=== PATIENT | female | born 1945 | race Caucasian/White ===

== ENCOUNTER 2022-10-03 05:55 | Inpatient (IN) | payer MEDICARE, OTHER ==
[~2022-10-03] VITALS: Ht 157.5 cm; Wt 81.8 kg
[~2022-10-03 05:55] MED LIST: ETHYL ALCOHOL 62% ANTISEPTIC NASAL SANITIZER 0.6 ML AMPUL NASAL ONE; RINGERS SOLUTION,LACTATED 1,000 ML IV ONE
[2022-10-03 06:18] LABS: COVID AG,FIA SOURCE NASAL SWAB
[2022-10-03] MEDS ORDERED: BUPIVACAINE HCL/PF 0.5% 30 ML VIAL ONE ×2 (06:52→07:20)
[2022-10-03] MEDS ORDERED: SODIUM CHLORIDE 0.9% 40 ML ONE (06:52)
[2022-10-03] MEDS ORDERED: VANCOMYCIN HCL 1 GM/VIAL ONE (06:52)
[2022-10-03] MEDS ORDERED: SODIUM CL IRRIG SOLN BAG 3,000 ML IRRIG ONE (06:53)
[2022-10-03] MEDS ORDERED: FentaNYL CITRATE PF 100 MCG/2 ML VIAL IVP PRN (07:00)
[2022-10-03] MEDS ORDERED: ZOLPIDEM TARTRATE 5 MG TABLET PO PRN (07:00)
[2022-10-03] MEDS ORDERED: CELECOXIB 200 MG CAPSULE PO ONE (07:00)
[2022-10-03] MEDS ORDERED: TRANEXAMIC ACID 1,000 MG in DEXTROSE 5%-WATER 50 ML IV ONE (07:00)
[2022-10-03] MEDS ORDERED: CYCLOBENZAPRINE HCL 10 MG TABLET PO PRN (07:00)
[2022-10-03] MEDS ORDERED: MEPERIDINE-PF 25 MG/ML VIAL IVP PRN (07:00)
[2022-10-03] MEDS ORDERED: HYDROmorphone HCL 2 MG/ML SYRINGE IVP PRN (07:00)
[2022-10-03] MEDS ORDERED: BUPIVACAINE LIPOSOME/PF 1.3%-13.3MG/ML SUSPENSION 20 ML VIAL INJ ONE ×2 (07:00→07:30)
[2022-10-03] MEDS ORDERED: OxyCODONE HCL 5 MG IR TABLET PO PRN (07:00)
[2022-10-03] MEDS ORDERED: ONDANSETRON HCL 4 MG/2 ML VIAL IVP PRN ×2 (07:00→09:45)
[2022-10-03] MEDS: ACETAMINOPHEN 1000 MG/ISO-OSM 100 ML IV SCH ×3 (07:09→18:08)
[2022-10-03] MEDS ORDERED: SODIUM CHLORIDE 0.9% 20 ML ONE (07:20)
[2022-10-03 07:41] LABS: GLUCOMETER DEV NAME(LOC) SDS.; GLUCOSE,POINT OF CARE 104 MG/DL (70-110)
[2022-10-03] MEDS ORDERED: LOSA-382 PO (07:44)
[2022-10-03] MEDS ORDERED: OXYGEN THERAPY IH SCH (08:00)
[2022-10-03] MEDS ORDERED: BISACODYL 10 MG RECTAL RECTAL SUPPOSITORY PR PRN (09:45)
[2022-10-03] MEDS ORDERED: MAG HYDROX/AL HYDROX/SIMETH 30 ML SUSP UDCUP PO PRN (09:45)
[2022-10-03] MEDS ORDERED: DiphenhydrAMINE HCL 50 MG/ML VIAL IVP PRN (09:45)
[2022-10-03] MEDS ORDERED: BENZOCAINE/MENTHOL LOZENGE PO PRN (09:45)
[2022-10-03 10:40] VITALS: BP 111/52
[2022-10-03] MEDS: OMEPRAZOLE 20 MG CAPSULE PO SCH (13:35)
[2022-10-03] MEDS: CeFAZolin 1 GM/DEXTROSE 50 ML IV SCH (15:24)
[2022-10-03 16:36] VITALS: BP 105/56
[2022-10-03 20:00] VITALS: BP 137/62
[2022-10-03] MEDS: FAMOTIDINE 20 MG TABLET PO SCH (20:33)
[2022-10-03] MEDS: DOCUSATE SODIUM 100 MG CAPSULE PO SCH (20:33)
[2022-10-03] MEDS: CELECOXIB 200 MG CAPSULE PO SCH (20:34)
[2022-10-04] MEDS: CeFAZolin 1 GM/DEXTROSE 50 ML IV SCH (00:26)
[2022-10-04] MEDS: HYDROmorphone HCL 2 MG/ML SYRINGE IVP PRN ×4 (00:33→23:01)
[2022-10-04] MEDS: ACETAMINOPHEN 1000 MG/ISO-OSM 100 ML IV SCH ×2 (01:35→08:56)
[2022-10-04 03:58] VITALS: BP 122/60
[2022-10-04] MEDS ORDERED: MORPHINE SULFATE/PF 0.5 MG/ML 10 ML AMP IVP ONE (06:05)
[2022-10-04] MEDS ORDERED: FentaNYL CITRATE PF 100 MCG/2 ML VIAL IVP ONE (06:05)
[2022-10-04] MEDS ORDERED: 0.9% SODIUM CHLORIDE 10 ML VIAL IVP ONE (06:05)
[2022-10-04] MEDS ORDERED: ROCURONIUM BROMIDE 10 MG/ML 5 ML VIAL IVP ONE (06:05)
[2022-10-04] MEDS ORDERED: DEXAMETHASONE SOD PHOS 4 MG/ML VIAL IVP ONE (06:05)
[2022-10-04] MEDS ORDERED: PROPOFOL 1% 20 ML VIAL IVP ONE (06:05)
[2022-10-04] MEDS ORDERED: LIDOCAINE/PF 2% 5 ML SYRINGE IVP ONE (06:05)
[2022-10-04] MEDS ORDERED: ONDANSETRON HCL 4 MG/2 ML VIAL IVP ONE (06:05)
[2022-10-04 06:32] LABS: BASOPHILS % (AUTO) 0.1 % (0.0-2.0); EOSINOPHILS % (AUTO) 0.4 % (1.0-6.0); HEMATOCRIT 29.5 % (36-46); HEMOGLOBIN 10.3 g/dL (12.0-16.0); LYMPHOCYTES % (AUTO) 21.7 % (22.0-44.0); MEAN CORPUSCULAR HGB CONC 34.8 G/dL (31.0-37.0); MEAN CORPUSCULAR VOLUME 86 fL (80-100); MONOCYTES # (AUTO) 0.6 K/uL (0.1-1.0); MONOCYTES % (AUTO) 6.5 % (2.0-9.0); NEUTROPHILS # (AUTO) 6.6 K/uL (1.8-7.7); NEUTROPHILS % (AUTO) 71.3 % (40.0-70.0); PLATELET COUNT (AUTO) 276 K/uL (150-450); RED BLOOD CELL COUNT(AUTO) 3.42 MIL/uL (4.00-5.20); RED CELL DISTRIBUTION WIDTH 13.5 % (11.5-14.5)
[2022-10-04 06:40] LABS: CALCIUM, TOTAL 8.5 mg/dL (8.8-10.5); CREATININE 0.92 mg/dL (0.60-1.30)
[2022-10-04 08:10] VITALS: BP 108/59
[2022-10-04] MEDS: DOCUSATE SODIUM 100 MG CAPSULE PO SCH ×2 (08:56→20:46)
[2022-10-04] MEDS: OMEPRAZOLE 20 MG CAPSULE PO SCH (08:56)
[2022-10-04] MEDS: CELECOXIB 200 MG CAPSULE PO SCH ×2 (08:56→20:47)
[2022-10-04] MEDS: ASPIRIN 81 MG CHEWABLE TABLET PO SCH ×2 (08:56→20:46)
[2022-10-04] MEDS: FAMOTIDINE 20 MG TABLET PO SCH ×2 (08:57→20:47)
[2022-10-04] MEDS ORDERED: LOSARTAN POTASSIUM 50 MG TABLET PO SCH (09:00)
[2022-10-04] MEDS ORDERED: OxyCODONE HCL/ACETAMINOPHEN 10-325 MG TABLET PO PRN (13:00)
[2022-10-04 20:00] VITALS: BP 130/56
[2022-10-05] MEDS: HYDROmorphone HCL 2 MG/ML SYRINGE IVP PRN (04:14)
[2022-10-05 04:16] VITALS: BP 135/51
[2022-10-05 07:06] LABS: BASOPHILS % (AUTO) 0.3 % (0.0-2.0); EOSINOPHILS % (AUTO) 3.3 % (1.0-6.0); HEMATOCRIT 27.5 % (36-46); HEMOGLOBIN 9.4 g/dL (12.0-16.0); LYMPHOCYTES # (AUTO) 2.1 K/uL (1.0-4.8); LYMPHOCYTES % (AUTO) 24.6 % (22.0-44.0); MEAN CORPUSCULAR HEMOGLOBIN 29.9 pg (26.0-34.0); MEAN CORPUSCULAR HGB CONC 34.4 G/dL (31.0-37.0); MEAN CORPUSCULAR VOLUME 87 fL (80-100); MONOCYTES # (AUTO) 0.7 K/uL (0.1-1.0); NEUTROPHILS # (AUTO) 5.3 K/uL (1.8-7.7); NEUTROPHILS % (AUTO) 63.8 % (40.0-70.0); PLATELET COUNT (AUTO) 246 K/uL (150-450); RED BLOOD CELL COUNT(AUTO) 3.16 MIL/uL (4.00-5.20); RED CELL DISTRIBUTION WIDTH 13.5 % (11.5-14.5)
[2022-10-05 07:45] VITALS: BP 130/56
[2022-10-05] MEDS: OMEPRAZOLE 20 MG CAPSULE PO SCH (08:11)
[2022-10-05] MEDS: ASPIRIN 81 MG CHEWABLE TABLET PO SCH (08:11)
[2022-10-05] MEDS: DOCUSATE SODIUM 100 MG CAPSULE PO SCH (08:11)
[2022-10-05] MEDS: FAMOTIDINE 20 MG TABLET PO SCH (08:12)
[2022-10-05] MEDS: CELECOXIB 200 MG CAPSULE PO SCH (08:29)
[2022-10-05] MEDS ORDERED: ACETAMINOPHEN 325 MG TABLET PO PRN (15:00)
[2022-10-05 15:09] VITALS: BP 121/62
== END 2022-10-05 16:15 | disposition home health service (06) | DRG 470 ==
LOC: 6S 05:55
PROVIDERS: ADMIT Orthopaedic Surgery; ATTEND Orthopaedic Surgery
PROC: 0SR90JZ Replacement of Right Hip Joint with Synthetic Substitute, Open Approach (ICD-10-PCS; principal; 2022-10-03 07:30)
DX: M16.11 Unilateral primary osteoarthritis, right hip (principal); I10 Essential (primary) hypertension; Z20.822 Contact with and (suspected) exposure to COVID-19; E66.9 Obesity, unspecified; D64.9 Anemia, unspecified; Z68.33 Body mass index [BMI] 33.0-33.9, adult; Z88.0 Allergy status to penicillin; Z90.710 Acquired absence of both cervix and uterus
CPT/HCPCS: 72170; 73502; 80048; 82962; 85025; 87081; 97116; 97162; 97166; 97530; 97535; C9290; G0238; J0131; J0690; J1100; J1170; J2274; J2405; J2704; J3010; J3370; J3490; J7060